=== PATIENT | female | born 1965 | race Caucasian/White ===

== ENCOUNTER 2020-01-17 16:37 | Emergency (ER) | payer OTHER ==
[~2020-01-17] VITALS: Ht 157.5 cm; Wt 81.2 kg
[2020-01-17 17:32] VITALS: Ht 157.5 cm; Wt 81.2 kg
[2020-01-17 18:27] LABS: BASOPHIL % 0.5 % (0-2)
[2020-01-17 18:30] LABS: PLATELET COUNT 519 x10^3mcL (130-400)
[2020-01-17 18:37] LABS: CALCIUM 7.9 mg/dL (8.5-10.1); CHLORIDE SERUM 103 mmol/L (98-107); CREATININE SERUM 0.8 mg/dL (0.6-1.0); GFR1 > 60 mL/min; GLUCOSE SERUM 104 mg/dL (74-106); POTASSIUM SERUM 3.9 mmol/L (3.5-5.1); SODIUM SERUM 134 mmol/L (136-145)
[2020-01-17 18:43] LABS: ALKALINE PHOSPHATASE 99 U/L (46-116); ALT/SGPT 40 U/L (14-59); AST/SGOT 39 U/L (15-37); BILIRUBIN TOTAL 0.19 mg/dL (0.20-1.00)
[2020-01-17 18:45] LABS: ALBUMIN 1.1 g/dL (3.4-5.0); TOTAL PROTEIN, SERUM 5.7 g/dL (6.4-8.2)
[2020-01-17 18:59] LABS: FREE T4 0.97 ng/dL (0.76-1.46); FREE THYROXINE INDEX 1.4 ug/dL (1.4-4.5); T4(THYROXINE) 3.6 ug/dL (4.7-13.3)
[2020-01-17 19:41] LABS: T3 TOTAL 0.8 ng/mL
[2020-01-17 20:10] VITALS: BP 152/70
[2020-01-17 20:18] LABS: microscopic required? YES; urine erythrocyte 2+ (NEGATIVE)
== END 2020-01-17 20:10 | disposition home or self-care (01) ==
LOC: ED 16:37
PROVIDERS: Emergency Medicine
DX: N05.9 Unspecified nephritic syndrome with unspecified morphologic changes (principal); E03.9 Hypothyroidism, unspecified
CPT/HCPCS: 82962; 83880; 84439; J1885

== ENCOUNTER 2020-01-21 08:31 | Emergency (ER) | payer OTHER ==
[~2020-01-21] VITALS: Ht 157.5 cm; Wt 76.7 kg
[2020-01-21 08:40] VITALS: Ht 157.5 cm; Wt 76.7 kg
[2020-01-21 09:11] LABS: BASOPHIL % 1.3 % (0-2)
[2020-01-21 09:14] LABS: PLATELET COUNT 526 x10^3mcL (130-400)
[2020-01-21 09:20] LABS: CALCIUM 8.1 mg/dL (8.5-10.1); CARBON DIOXIDE 27.6 mmol/L (21-32); CHLORIDE SERUM 107 mmol/L (98-107); CREATININE SERUM 0.6 mg/dL (0.6-1.0); GFR1 > 60 mL/min; GLUCOSE SERUM 93 mg/dL (74-106); POTASSIUM SERUM 3.9 mmol/L (3.5-5.1); SODIUM SERUM 140 mmol/L (136-145)
[2020-01-21 09:29] LABS: ALKALINE PHOSPHATASE 67 U/L (46-116); ALT/SGPT 33 U/L (14-59); AST/SGOT 34 U/L (15-37); BILIRUBIN TOTAL 0.2 mg/dL (0.20-1.00); MAGNESIUM 1.9 mg/dL (1.8-2.4)
[2020-01-21 09:42] LABS: ALBUMIN 1.2 g/dL (3.4-5.0); TOTAL PROTEIN, SERUM 5.6 g/dL (6.4-8.2)
[2020-01-21 10:18] LABS: microscopic required? YES; urine erythrocyte 3+ (NEGATIVE)
[2020-01-21 12:01] VITALS: BP 121/58
== END 2020-01-21 12:01 | disposition home or self-care (01) ==
LOC: ED 08:31
PROVIDERS: Emergency Medicine
DX: N04.9 Nephrotic syndrome with unspecified morphologic changes (principal); E03.9 Hypothyroidism, unspecified; Z88.0 Allergy status to penicillin; Z88.2 Allergy status to sulfonamides